=== PATIENT | male | born 1960 | race Caucasian/White ===

== ENCOUNTER → 2016-11-16 | Outpatient (CLI) | payer OTHER ==
[2016-09-05 10:44] VITALS: BP 164/87
[~2016-11-16] MED LIST: AMIO200T2 PO; AMLO10TA2 PO; ASPI81TA2 PO; ATEN50TA PO; CARV12.5 PO; CLOP75TA PO; DIAZEPAM10 MG PO; DOCU-27 PO; DOXA8TAB59 PO; ERGO500012 PO; FENO160T PO; FURO40TA4 PO; HYDR-2672 PO; HYDR-963 PO; HYDR25TA9 PO; HYDR50TA6 PO; INSU100I27 SQ; INSU100V8 SQ; LIRA0.6P2 SQ; LISI-334 PO; LOSA100T6 PO; METF10002 PO; METO25TA4 PO; NITR0.4T6 SL; OMEP40CA5 PO; OXYC-323 PO; OXYC1TAB7 PO; PANT40TA3 PO; PRAV80TA2 PO; SILD100T PO; TEST200V3 IM; [UNRECOGNIZED DRUG - CODE] MC; [UNRECOGNIZED DRUG - CODE] TP
[2016-11-16 11:29] LABS: BILIRUBIN,URINE NEGATIVE (NEG); GLUCOSE,URINE >=1000 mg/dL (NEG); NITRITE,URINE NEGATIVE (NEG); PH,URINE 5.5; UROBILINOGEN,URINE 0.2 mg/dL (0.2 mg/dL)
[2016-11-16 11:47] LABS: BACTERIA,URINE FEW /HPF (0-FEW); PROTEIN,URINE 300 mg/dL (NEG-TRACE); RBC,URINE RARE /HPF (0-2); SQUAMOUS EPITHELIAL CELL,UR FEW /LPF; WBC,URINE RARE /HPF (0-4)
== END | disposition home or self-care (01) ==
LOC: LAB 10:27
PROVIDERS: ATTEND Internal Medicine Cardiovascular Disease
DX: N18.9 Chronic kidney disease, unspecified (principal)
CPT/HCPCS: 36415; 81001; 82570; 83880; 84300

== ENCOUNTER 2018-08-20 08:32 | Day surgery (SDC) | payer OTHER ==
[~2018-08-20] VITALS: Ht 188 cm; Wt 117.9 kg
[~2018-08-20 08:32] MED LIST changes: -AMIO200T2 PO; +AMIO200T4 PO; -AMLO10TA2 PO; +AMLO10TA6 PO; +ASPI-630 PO; -ASPI81TA2 PO; +DOCU-109 PO; -DOCU-27 PO; -ERGO500012 PO; +ERGO500027 PO; -HYDR-2672 PO; +HYDR-2766 PO; -LOSA100T6 PO; +LOSA100T7 PO; -METF10002 PO; +METF10007 PO; +NITR0.4T22 SL; -NITR0.4T6 SL; +[UNRECOGNIZED DRUG - CODE] TP; -[UNRECOGNIZED DRUG - CODE] TP
[2018-08-20] MEDS ORDERED: IV RINGERS,LACTATED 1000ML 1,000 ML IV SCH (08:53)
[2018-08-20] MEDS ORDERED: ONDANSETRON PF 4 MG/2 ML VIAL. IV PRN (09:00)
[2018-08-20] MEDS ORDERED: MORPHINE SULFATE 2 MG/ML VIAL. IV PRN (09:00)
[2018-08-20] MEDS ORDERED: PROCHLORPERAZINE 10 MG/2 ML VIAL. IV PRN (09:00)
[2018-08-20] MEDS ORDERED: fentaNYL PF VIAL 100 MCG/2 ML VIAL IV PRN ×2 (09:00)
[2018-08-20] MEDS ORDERED: LIDOCAINE 1% PF 2 ML VIAL. ID PRN (09:00)
[2018-08-20] MEDS ORDERED: HYDROmorphone 2 MG/ML VIAL IV PRN (09:00)
[2018-08-20] MEDS ORDERED: ONDANSETRON PF 4 MG/2 ML VIAL. ONE (09:12)
[2018-08-20] MEDS ORDERED: DEXAMETHASONE SOD PHOS 20 MG/5 ML VIAL. ONE (09:12)
[2018-08-20] MEDS ORDERED: ePHEDrine PF IN SALINE 50 MG/5 ML DISP.SYRIN IV ONE ×2 (09:13→10:08)
[2018-08-20] MEDS ORDERED: fentaNYL PF VIAL 100 MCG/2 ML VIAL ONE (09:13)
[2018-08-20] MEDS ORDERED: PROPOFOL 20 ML IV ONE (09:13)
[2018-08-20] MEDS ORDERED: MIDAZOLAM HCL/PF 2 MG/2 ML VIAL. ONE (09:14)
[2018-08-20] MEDS ORDERED: LIDOCAINE 2% PF Vial for OR 5 ML VIAL. ONE (09:15)
[2018-08-20] MEDS ORDERED: INSU100I32 SQ (09:26)
[2018-08-20] MEDS ORDERED: LIDOCAINE 1% PF 30 ML VIAL. ONE (09:27)
[2018-08-20] MEDS ORDERED: BUPIVACAINE MPF 0.5% 30 ML VIAL. ONE (09:28)
[2018-08-20] MEDS ORDERED: OMEG1CAP38 PO (09:28)
[2018-08-20] MEDS ORDERED: EZET10TA18 PO (09:31)
--- NOTE | 2018-08-20 10:41 | DISCH ---
DISCHARGE INSTRUCTIONS Condition on Discharge Condition on Discharge: Stable Activity After Discharge Activity Instructions for Disc: Activity as tolerated Other activity instructions: wiggle fingers Bathing Instructions: Shower-keep dressing dry Lifting Instructions after Dis: No heavy lifting, Do not lift >10 pounds Exercise Instruction after Dis: Progress as tolerated Driving Instructions after Dis: Other, see below Weight Bearing Status after Di: As tolerated Diet after Discharge Diet after Discharge: Regular Wound Incision Care Wound/Incision Care: Ice to area for comfort, Keep wound/cast CDI, Keep wound elevated, Change dressing Checks after Discharge Checks after discharge: Check blood sugar, ac/hs, Weigh Yourself Daily Contacting the DR. after DC Call your doctor for: Concerns you may have Follow-Up Follow up with: Jacqueline in 2 wks JOEY SANCHEZ II, MD Aug 20, 2018 10:41
--- NOTE | 2018-08-20 11:01 | PDOC4 ---
Operative Note Operative Note Date of surgery: 08/20/2018 Surgeon: Cong Sanchez Railroad Cook: Maribell Greenberg, certified cytotechnologist Preoperative diagnosis: #1 right cubital tunnel syndrome #2 right carpal tunnel syndrome Postoperative diagnoses: Same Procedures performed: #1 open right cubital tunnel decompression #2 open right carpal tunnel release Anesthesia: Gen. Blood loss: 5 mL Tourniquet time: Less than 30 minutes Findings: Normal-appearing ulnar and median nerves Complications: None Reason for procedure: Patient is a very pleasant 58-year-old gentleman who had known for quite some time for complaints of numbness and tingling in all 5 digits. His clinical and electromyographic examinations were consistent with the above preoperative diagnosis and after failure of conservative therapies including splinting, injections and anti-inflammatories, we had a discussion of the risks, benefits, and alternatives to surgery and he wished to proceed. Description of procedure: Patient was greeted in the preoperative area by myself for the correct extremity was verified and marked. He was taken to the operative suite and his antibiotics were started as he was brought back. Once in the operating room, he was transferred gently supine to the operating table and secured to the bed with all pressure points padded. The hand board attachment was secured in place to the operating room table. Nonsterile tourniquet applied and secured in place to his right upper extremity. Right upper extremity was then prepped and draped in our usual sterile fashion and we conducted our standard preoperative timeout. After this, I palpated and marked surface anatomy and lisa a line from my incision over his medial elbow referencing his medial epicondyle. The extremity was exsanguinated with an Esmarch and tourniquet insufflated to 250 mmHg. After this, I incised skin with a scalpel and dissected subcutaneous tissue with bipolar cautery and tenotomies. Identified the fascia and incised this in line with the skin incision and identified his ulnar nerve adjacent to the medial epicondyle and release the overlying tissue into the arcade of [place]. I used the tip of the tenotomies to palpate along the proximal course of the nerve and felt that accomplished a complete release. I then directed my attention to decompressing is cubital tunnel into the 2 heads of the FDS. After this, I palpated along the entire course of the nerve with the tenotomies to ensure that accomplished a complete release, I was confident I had. I then took his elbow through range of motion, full extension to full flexion, and noted no subluxation of the ulnar nerve. After this, I directed my attention to the patients right volar wrist. I made a incision referencing a palmar crease from his distal wrist crease into his hand. Skin was incised the scalpel and then I used bipolar cautery for bleeders and a curved hemostat to spread down to the palmar fascia. I incised palmar fascia line with the skin incision and placed my self-retaining retractor. I identified the transverse carpal ligament and release this sharply with a scalpel. After this, I placed a Ragnell retractor and the distal extent of the incision, spread above and below the remainder of the transverse carpal ligament and release this with my tenotomies. I then repeated this maneuver and an ulnar directed fashion to release the distal antebrachial fascia. I then palpated along the course of the nerve to ensure that accomplished a complete release, I was confident I had. I next irrigated with sterile saline. Tourniquet was let down and bleeders were cauterized with bipolar cautery. I then closed his ulnar tunnel incision with inverted interrupted 2-0 Vicryl followed by 4-0 Monocryl in a subcuticular fashion. The kristi-incisional skin was injected with a local anesthetic mixture. The carpal tunnel incision was closed with 2-0 nylon in a mattress fashion. I injected local anesthetic into the kristi-incisional skin as well. The upper extremity was cleansed and dried and a sterile soft bulky dressing was applied. Patient tolerated surgery well. No competitions. The conclusion of the surgery, he was transferred gently supine to the recovery room cart and taken to PACU in a stable and neck bit condition. Postoperative plan is discharge him home. Active range of motion was encouraged. Wound care was discussed verbally and in written form. We will see him back in 2 weeks, sooner should a problem arise. CONG SANCHEZ II, MD Aug 20, 2018 11:01
[2018-08-20] MEDS ORDERED: DOCU-109 PO (11:16)
[2018-08-20] MEDS ORDERED: OXYC-323 PO (11:16)
[2018-08-20] MEDS ORDERED: ONDA4TAB10 SL (11:19)
[2018-08-20] MEDS ORDERED: HYDROcodone/APAP 5/325MG 1 TAB TABLET PO ONE (11:45)
[2018-08-20 12:00] VITALS: BP 157/74
== END 2018-08-20 12:00 | disposition home or self-care (01) ==
LOC: SURG 08:32
PROVIDERS: ATTEND Orthopaedic Surgery Sports Medicine
DX: G56.01 Carpal tunnel syndrome, right upper limb (principal); G56.21 Lesion of ulnar nerve, right upper limb; I10 Essential (primary) hypertension; E11.42 Type 2 diabetes mellitus with diabetic polyneuropathy; I25.10 Atherosclerotic heart disease of native coronary artery without angina pectoris; E78.5 Hyperlipidemia, unspecified; Z95.1 Presence of aortocoronary bypass graft; Z98.890 Other specified postprocedural states; Z89.422 Acquired absence of other left toe(s); Z82.49 Family history of ischemic heart disease and other diseases of the circulatory system; Z82.3 Family history of stroke; Z87.891 Personal history of nicotine dependence; Z72.89 Other problems related to lifestyle; Z79.899 Other long term (current) drug therapy; Z79.84 Long term (current) use of oral hypoglycemic drugs
CPT/HCPCS: 64718; 64721; 82962; J0690; J1100; J2001; J2250; J2405; J2704; J3010; J3490

== ENCOUNTER → 2018-10-01 | Outpatient (CLI) | payer OTHER ==
[~2018-10-01] MED LIST changes: +EZET10TA18 PO; +HYDR-2145 PO; -HYDR-2766 PO; +HYDR-2769 PO; +HYDR-3135 PO; -HYDR-963 PO; -HYDR25TA9 PO; +INSU100I32 SQ; +OMEG1CAP38 PO; +ONDA4TAB10 SL; -OXYC-323 PO; +OXYC1TAB15 PO
== END | disposition home or self-care (01) ==
LOC: PMGWOUND 09:00
PROVIDERS: ATTEND Preventive Medicine Undersea and Hyperbaric Medicine
DX: E11.621 Type 2 diabetes mellitus with foot ulcer (principal); L97.522 Non-pressure chronic ulcer of other part of left foot with fat layer exposed; E11.42 Type 2 diabetes mellitus with diabetic polyneuropathy; L84 Corns and callosities; I10 Essential (primary) hypertension; E78.00 Pure hypercholesterolemia, unspecified; E78.5 Hyperlipidemia, unspecified; I25.2 Old myocardial infarction; I25.10 Atherosclerotic heart disease of native coronary artery without angina pectoris; E66.9 Obesity, unspecified; Z68.34 Body mass index [BMI] 34.0-34.9, adult; Z87.891 Personal history of nicotine dependence
CPT/HCPCS: 11042

== ENCOUNTER → 2018-10-06 | Outpatient (CLI) | payer OTHER ==
[~2018-10-06] MED LIST changes: +LOSA100T14 PO; -LOSA100T7 PO
== END | disposition home or self-care (01) ==
LOC: PMGWOUND 13:10
PROVIDERS: ATTEND Emergency Medicine Undersea and Hyperbaric Medicine
DX: E11.621 Type 2 diabetes mellitus with foot ulcer (principal); L97.522 Non-pressure chronic ulcer of other part of left foot with fat layer exposed; E11.42 Type 2 diabetes mellitus with diabetic polyneuropathy; L84 Corns and callosities; I10 Essential (primary) hypertension; E78.5 Hyperlipidemia, unspecified; E78.00 Pure hypercholesterolemia, unspecified; I25.2 Old myocardial infarction; I25.10 Atherosclerotic heart disease of native coronary artery without angina pectoris; E66.9 Obesity, unspecified; Z68.34 Body mass index [BMI] 34.0-34.9, adult; Z87.891 Personal history of nicotine dependence
CPT/HCPCS: 11042; 29445

== ENCOUNTER → 2018-10-08 | Outpatient (CLI) | payer OTHER | END | disposition home or self-care (01) | LOC: PMGWOUND 10:49 | PROVIDERS: ATTEND Preventive Medicine Undersea and Hyperbaric Medicine | DX: E11.621 Type 2 diabetes mellitus with foot ulcer (principal); L97.522 Non-pressure chronic ulcer of other part of left foot with fat layer exposed; E11.42 Type 2 diabetes mellitus with diabetic polyneuropathy; L84 Corns and callosities; I10 Essential (primary) hypertension; E78.00 Pure hypercholesterolemia, unspecified; I25.2 Old myocardial infarction; E78.5 Hyperlipidemia, unspecified; E66.9 Obesity, unspecified; I25.10 Atherosclerotic heart disease of native coronary artery without angina pectoris; Z68.34 Body mass index [BMI] 34.0-34.9, adult; Z87.891 Personal history of nicotine dependence | CPT/HCPCS: 99214; G0463 ==

== ENCOUNTER → 2018-10-10 | Outpatient (CLI) | payer OTHER ==
--- NOTE | 2018-10-11 09:57 | RAD ---
Left lower extremity arterial duplex Doppler ultrasound and ankle-brachial index HISTORY: Left diabetic foot ulcer. Grayscale and duplex Doppler sonography were utilized FINDINGS: Right resting ankle-brachial index is 1.1 based on systolic pressure of the arm of 176 mmHg and of the ankle of 191 mmHg. Left resting ankle-brachial index is 1.0 based on systolic pressure of the arm of 172 mmHg and of the ankle of 180 mmHg. Left lower extremity arterial ultrasound demonstrates mild plaquing throughout the leg without high-grade stenosis or occlusion of the femoral and popliteal vessels by color Doppler sonography. Biphasic waveforms with normal velocities and systolic upstrokes without evidence of high-grade stenosis or occlusion of the common femoral artery, profunda femoral artery, superficial femoral artery, and popliteal artery. Monophasic waveforms with normal systolic upstrokes and velocities without high-grade stenosis or occlusion of the posterior tibial artery, peroneal artery and dorsalis pedis artery. There is occlusion of the anterior tibial artery with no flow documented. IMPRESSION: Occlusion of the anterior tibial artery. Biphasic arterial waveforms at the thigh and monophasic waveforms at the calf related to peripheral vascular disease. See discussion above. Electronically signed by: Obinna Millan MD (10/11/2018 9:53 AM) [facility]
== END | disposition home or self-care (01) ==
LOC: US 15:39
PROVIDERS: ATTEND Preventive Medicine Undersea and Hyperbaric Medicine
DX: E11.621 Type 2 diabetes mellitus with foot ulcer (principal); L97.522 Non-pressure chronic ulcer of other part of left foot with fat layer exposed; I70.8 Atherosclerosis of other arteries; E11.51 Type 2 diabetes mellitus with diabetic peripheral angiopathy without gangrene
CPT/HCPCS: 93922; 93926

== ENCOUNTER → 2018-10-15 | Outpatient (CLI) | payer OTHER | END | disposition home or self-care (01) | LOC: PMGWOUND 08:02 | PROVIDERS: ATTEND Preventive Medicine Undersea and Hyperbaric Medicine | DX: E11.621 Type 2 diabetes mellitus with foot ulcer (principal); L97.528 Non-pressure chronic ulcer of other part of left foot with other specified severity; E11.51 Type 2 diabetes mellitus with diabetic peripheral angiopathy without gangrene; E11.42 Type 2 diabetes mellitus with diabetic polyneuropathy; L84 Corns and callosities; I10 Essential (primary) hypertension; I25.2 Old myocardial infarction; E78.00 Pure hypercholesterolemia, unspecified; E66.9 Obesity, unspecified; E66.01 Morbid (severe) obesity due to excess calories; I25.10 Atherosclerotic heart disease of native coronary artery without angina pectoris; Z68.34 Body mass index [BMI] 34.0-34.9, adult; Z87.891 Personal history of nicotine dependence | CPT/HCPCS: 99213 ==

== ENCOUNTER → 2018-10-29 | Outpatient (CLI) | payer OTHER | END | disposition home or self-care (01) | LOC: PMGWOUND 08:12 | PROVIDERS: ATTEND Preventive Medicine Undersea and Hyperbaric Medicine | DX: E11.621 Type 2 diabetes mellitus with foot ulcer (principal); L97.522 Non-pressure chronic ulcer of other part of left foot with fat layer exposed; E11.42 Type 2 diabetes mellitus with diabetic polyneuropathy; E11.51 Type 2 diabetes mellitus with diabetic peripheral angiopathy without gangrene; L84 Corns and callosities; I10 Essential (primary) hypertension; E78.5 Hyperlipidemia, unspecified; E78.00 Pure hypercholesterolemia, unspecified; I25.2 Old myocardial infarction; I25.10 Atherosclerotic heart disease of native coronary artery without angina pectoris; E66.01 Morbid (severe) obesity due to excess calories; Z68.34 Body mass index [BMI] 34.0-34.9, adult; Z87.891 Personal history of nicotine dependence | CPT/HCPCS: 99214; G0463 ==